=== PATIENT | male | born 1960 | race Native Hawaiian/Other Pacific Islander ===

== ENCOUNTER 2017-01-11 11:34 | Emergency (ER) | payer OTHER ==
[2017-01-11 11:43] VITALS: BP 121/77; PULSE 82; RESP 15; TEMP 98.5; O2SAT 97
[2017-01-11] MEDS ORDERED: Absorbable Gelatin Sponge Size 12-7 ONE (12:03)
--- NOTE | 2017-01-11 12:14 | C.PDOC ---
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 unknown date of last tetanus. Patient denies LOC, arm pain, hand pain, weakness or numbness. Time Seen by Provider: 01/11/17 11:58 Chief Complaint (Nursing): Upper Extremity Problem/Injury History Per: Patient History/Exam Limitations: no limitations Onset/Duration Of Symptoms: Sudden Onset (MAINTENANCE PERSON) Past Medical History Reviewed: Historical Data, Nursing Documentation, Vital Signs Vital Signs: Last Vital Signs Temp 98.5 F 01/11/17 11:42 Pulse 82 01/11/17 11:42 Resp 15 01/11/17 11:42 BP 121/77 01/11/17 11:42 Pulse Ox 97 01/11/17 22:52 - Medical History PMH: No Chronic Diseases Surgical History: No Surg Hx Family History: States: No Known Family Hx - Social History Hx Alcohol Use: Yes Hx Substance Use: No - Immunization History Hx Tetanus Toxoid Vaccination: No Hx Influenza Vaccination: No Hx Pneumococcal Vaccination: No Review Of Systems Except As Marked, All Systems Reviewed And Found Negative. Constitutional: Negative for: Fever, Chills Musculoskeletal: Positive for: Other ((+) Avulsion laceration to the left index finger). Negative for: Arm Pain, Hand Pain Skin: Positive for: Other (avulsion left second finger) Neurological: Negative for: Weakness, Numbness Physical Exam - Physical Exam Appears: Well, Non-toxic, No Acute Distress Skin: Warm, Dry, No Rash Head: Atraumatic, Normacephalic Chest: Tenderness Cardiovascular: Murmur Extremity: Other (left second finger with 1 cm x 0.6 cm ovoid area to distal tip /nail lateral aspect sliced off with active oozing. good cap refil. ) Neurological/Psych: Oriented x3, Normal Speech, Normal Motor ED Course And Treatment O2 Sat by Pulse Oximetry: 97 Progress Note: Patient is brought UTD on tetanus. Procedure: Wound Repair - Consent Obtained Consent obtained: Verbal - Performed by Performed by: Mid-level Provider - Indications Indication(s):: Other (surgifoam applied with hemostasis and large bandage) - Location Location:: Left, Lateral, Distal Finger:: Index Dimensions Length cm: 1 Dimensions width cm: 0.6 Depth:: Epidermis - Irrigated Irrigated with ml of normal saline: 100 - Patient tolerated procedure Patient Tolerated Procedure:: Well Medical Decision Making Medical Decision Making: PLAN: * Tylenol PO * Tetanus IM Disposition Counseled Patient/Family Regarding: Diagnosis, Need For Followup - Disposition Disposition: HOME/ ROUTINE Disposition Time: 13:21 Condition: GOOD Additional Instructions: Keep finger clean and dry with dressing on. Return to ER in 2 days for a wound check. Return to ER sooner if pain increases, fever develops or bleeding starts again. Tylenol or Motrin for pain if needed. Instructions: Laceration Without Closure (ED) Forms: General Discharge Instructions, Work Excuse - Clinical Impression Clinical Impression: Avulsion, finger tip - PA / MANAGER CREDIT COLLECTIONS / Resident Statement MD/DO has reviewed & agrees with the documentation as recorded. - Scribe Statement The provider has reviewed the documentation as recorded by the Scribe Mary Ann Green All medical record entries made by the Scribe were at my direction and personally dictated by me. I have reviewed the chart and agree that the record accurately reflects my personal performance of the history, physical exam, medical decision making, and the department course for this patient. I have also personally directed, reviewed, and agree with the discharge instructions and disposition.
== END 2017-01-11 14:02 | disposition home or self-care (01) ==
LOC: C.ER 11:34
DX: S61.311A Laceration without foreign body of left index finger with damage to nail, initial encounter (principal); W26.0XXA Contact with knife, initial encounter; Y93.G1 Activity, food preparation and clean up; Y92.89 Other specified places as the place of occurrence of the external cause; Y99.0 Civilian activity done for income or pay

== ENCOUNTER 2017-01-13 12:29 | Emergency (ER) | payer OTHER ==
[2017-01-13 12:38] VITALS: BP 119/77; PULSE 69; RESP 17; TEMP 98; O2SAT 98
--- NOTE | 2017-01-13 12:49 | C.PDOC ---
History Of Present Illness 57 y/o male presents to the ED for wound check s/p left 2nd finger avulsion laceration. Pt was seen 01/11 with gel foam placed. Pt states doing well, no new symptoms. FOR WOUND CHECK S/P L 2ND FINGER AVULSION LAC. SEEN 01/11, GEL FOAM PLACED. PS DOING WELL, NO NEW SX EXAM EXT L FINGER 2: GEL FOAM IN PLACE. NO BLEEDING, ERYTHEMA, SWELLING, TEND. ADVISED WOUND CARE, RETURN IF WORSENING SYMPTOMS Time Seen by Provider: 01/13/17 12:46 Chief Complaint (Nursing): Wound Check History Per: Patient History/Exam Limitations: no limitations Onset/Duration Of Symptoms: Days Ago Current Symptoms Are (Timing): Better Severity: Mild Recent travel outside of the [place]: No Past Medical History Reviewed: Historical Data, Nursing Documentation, Vital Signs Vital Signs: Last Vital Signs Temp 98.0 F 01/13/17 12:37 Pulse 69 01/13/17 12:37 Resp 17 01/13/17 12:37 BP 119/77 01/13/17 12:37 Pulse Ox 98 01/13/17 12:53 Family History: States: Unknown Family Hx - Social History Hx Alcohol Use: No Hx Substance Use: No - Immunization History Hx Tetanus Toxoid Vaccination: Yes Hx Influenza Vaccination: No Hx Pneumococcal Vaccination: (unk) Review Of Systems Except As Marked, All Systems Reviewed And Found Negative. Constitutional: Negative for: Fever, Chills Skin: Positive for: Other (wound check left second finger laceration) Physical Exam - Physical Exam Appears: Non-toxic, No Acute Distress Skin: Warm, Dry, No Rash Head: Atraumatic, Normacephalic Extremity: Normal ROM, Other (Left 2nd finger: gel foam in place. No bleeding, erythema, swelling or tenderness.) Neurological/Psych: Oriented x3, Normal Motor, Normal Sensation ED Course And Treatment O2 Sat by Pulse Oximetry: 98 (on room air) Pulse Ox Interpretation: Normal Progress - Data Reviewed Data Reviewed: Old records Medical Decision Making Medical Decision Making: Advised proper wound care. Instructed to return if worsening symptoms. Disposition Counseled Patient/Family Regarding: Diagnosis, Need For Followup - Disposition Referrals: [facility] [Outside] [facility] [Outside] Disposition: HOME/ ROUTINE Disposition Time: 12:53 Condition: GOOD Instructions: Acute Wound Care (ED) - Clinical Impression Clinical Impression: Visit for wound check - Scribe Statement The provider has reviewed the documentation as recorded by the Scribe Meño Roque Provider Attestation: All medical record entries made by the Scribe were at my direction and personally dictated by me. I have reviewed the chart and agree that the record accurately reflects my personal performance of the history, physical exam, medical decision making, and the department course for this patient. I have also personally directed, reviewed, and agree with the discharge instructions and disposition.
== END 2017-01-13 13:10 | disposition home or self-care (01) ==
LOC: C.ER 12:29
DX: Z48.00 Encounter for change or removal of nonsurgical wound dressing (principal)